=== PATIENT | female | born 1995 | race Caucasian/White ===

== ENCOUNTER 2017-07-20 19:11 | Emergency (ER) | payer BC ==
[~2017-07-20] VITALS: Ht 170.2 cm; Wt 72.4 kg
[2017-07-20 20:49] LABS: HEMATOCRIT 37.7 % (36.0-46.0); HEMOGLOBIN 12.9 G/DL (11.9-15.5); MCHC 34.2 G/DL (30.0-36.0); MCV 90.6 FL (83-99); PLATELET COUNT 310 K/uL (156-360); RBC DIS.WIDTH-SD 40.3 % (39-53); RED BLOOD COUNT 4.16 M/uL (3.80-5.20); WHITE BLOOD COUNT 9.4 K/uL (4.1-10.2)
[2017-07-20 21:01] LABS: CHLORIDE 105 mEq/L (99-109); POTASSIUM 4.1 mEq/L (3.7-5.4); SODIUM 138 mEq/L (136-147)
[2017-07-20 21:03] LABS: GLUCOSE 85 mg/dL (70-99)
[2017-07-20 21:07] LABS: CREATININE 0.7 mg/dL (0.6-1.3); GFR ESTIMATE (CALCULATED) > 59 mL/min/; TROP-I INTERPRETATION NEGATIVE; TROPONIN-I < 0.01 ng/mL (0.0-0.30)
[2017-07-20 21:08] LABS: UREA NITROGEN (BUN) 12 mg/dL (9-23)
[2017-07-20] MEDS ORDERED: NAPROSYN500 MG PO (21:26)
[2017-07-20 21:33] VITALS: BP 136/88
== END 2017-07-20 21:34 | disposition home or self-care (01) ==
LOC: EME 19:11
PROVIDERS: Physician Assistant
DX: R07.89 Other chest pain (principal); R05 Cough; Z79.3 Long term (current) use of hormonal contraceptives
CPT/HCPCS: 71046; 80048; 84484; 85027; 85379; 93005; 99281; 99284